=== PATIENT | female | born 1985 | race Caucasian/White ===

== ENCOUNTER 2020-01-11 09:39 | Outpatient (CLI) | payer BC ==
[2020-01-11] MEDS ORDERED: Iopamidol 300 61% 50 ML VIAL FS ONE (10:05)
[2020-01-11 10:23] LABS: BHCG - Serum Negative (NEGATIVE); Pregs Control Background? CLEAR/WHITE (CLR/WHITE); Pregs Control Bar Appear? YES (CONTROL BAR)
[2020-01-11 10:24] LABS: Follow-up Chemistry Comp? YES
--- NOTE | 2020-01-11 10:59 | RAD ---
HYSTEROSALPINGOGRAM: HISTORY: Reversal of previous tubal ligation. EXPOSURE: 767.8 mGy*^m2, 0.9 minutes. FINDINGS: Retrograde opacification of the endometrium and fallopian tubes was performed. Contrast opacifies a n ormal-appearing endometrium. Contrast opacifies bilateral short segment fallopian tubes. There is free spillage in the left and right hemipelvis suggesting patency. Balloon was deflated and the lower uterine segment does not demonstrate any acute abnormality. IMPRESSION: Patent bilateral fallopian tubes are suspected with free spillage in the left and right hemipelvis. Transcribed Date/Time: 01/11/2020 12:49 PM
== END 2020-01-11 09:40 | disposition home or self-care (01) ==
LOC: RAD 09:39
PROVIDERS: ATTEND Obstetrics & Gynecology
DX: Z31.0 Encounter for reversal of previous sterilization (principal)
CPT/HCPCS: 36415; 58340; 74740; 84703; Q9967

== ENCOUNTER 2021-04-27 15:03 | Outpatient (CLI) | payer BC ==
[~2021-04-27 15:03] MED LIST: Iopamidol 300 61% 50 ML VIAL FS ONE
== END 2021-04-27 15:04 | disposition home or self-care (01) ==
LOC: RAD 15:03
PROVIDERS: ATTEND Obstetrics & Gynecology
DX: Z31.0 Encounter for reversal of previous sterilization (principal)
CPT/HCPCS: 58340; 74740; Q9967